=== PATIENT | male | born 1970 | race Caucasian/White ===

== ENCOUNTER 2017-03-14 09:25 | Emergency (ER) | payer OTHER ==
[~2017-03-14] VITALS: Ht 167.6 cm; Wt 101.2 kg
[~2017-03-14 09:25] MED LIST: DOXY20PT PO; ESOM20CA31 PO; FLUO-201 PO; KET10 PO; LORA-1221 PO; METO25TA93 PO; PER PO
[2017-03-14] MEDS ORDERED: SERT-184 PO (09:34)
[2017-03-14] MEDS ORDERED: CLON0.5T66 PO (09:34)
[2017-03-14] MEDS ORDERED: PANT40TA65 PO (09:34)
--- NOTE | 2017-03-14 09:42 | ER Report ---
History and Physical Time Seen By MD: 09:41 Hx. of Stated Complaint: BENT OVER TUESDAY AND FELT "POP" IN LOWER BACK. CONTINUES TO HAVE LOW BACK PAIN THAT RADIATES TO LEFT LEG AND HAS TINGLING. HPI/ROS CHIEF COMPLAINT: back pain HISTORY OF PRESENT ILLNESS: This is a 46 year old male. He was bending over on Tuesday. He went to get up and felt a "pop" in his lower back. Pain since then. Worsens with movement. The 1st 24 hours he could not get up and crawled around. When he tried to get up today, legs very weak and shaky and would give way, feels like they will not function at times. He has normal urination, but had sudden onset of diarrhea loose stool with urgency after this happened. He has had history of low back pain and disc problems in the past. Has seen Dr. Villa and Dr. Reid at [facility] in the past. Has an appointment coming up with , but symptoms were severe enough that the recommendation was made to come into the ER. He has shooting pain in both legs, to the thigh in the right and to the foot in the left. No fevers. Allergies: Coded Allergies: Cephalexin Monohydrate (Verified Allergy, Unknown, 03/14/17) Home Meds Active Scripts Methylprednisolone (METHYLPREDNISOLONE) 4 Mg Tab.ds.pk, 4 MG PO DIRECTED, #1 PACK 0 Refills Prov:SAM BROWN MD 03/14/17 Hydrocodone Bit/Acetaminophen (HYDROCODON-ACETAMINOPHEN 5-325) 1 Each Tablet, 1 EACH PO Q4H Y for PAIN, #12 TAB 0 Refills Prov:SAM BROWN MD 03/14/17 Cyclobenzaprine Hcl (CYCLOBENZAPRINE HCL) 10 Mg Tablet, 10 MG PO Q8H Y for MUSCLE SPASMS, #20 TAB 0 Refills Prov:SAM BROWN MD 03/14/17 Reported Medications Pantoprazole Sodium (PANTOPRAZOLE SODIUM) 40 Mg Tablet., 40 MG PO QDAY, TAB.SR 03/14/17 Clonazepam (KLONOPIN) 0.5 Mg Tablet, 0.5 MG PO TID, #10 TAB 03/14/17 Sertraline Hcl (SERTRALINE HCL) 50 Mg Tablet, 1 TAB PO QDAY, TAB 1/29/18 Discontinued Reported Medications Doxycycline Hyclate (DOXYCYCLINE HYCLATE) 20 Mg Tablet, PO QID 01/25/16 Esomeprazole Magnesium (NEXIUM) 20 Mg Capsule.dr, 1 CAP PO QDAY, CAP 01/25/16 Fluoxetine Hcl (PROZAC) 10 Mg Capsule, 30 MG PO QDAY, CAPSULE 01/25/16 Lorazepam (Ativan) 1 Mg Tablet, 1 MG PO TID Y for ANXIETY, #30 06/05/11 Reviewed Nurses Notes: Yes Hx Smoking: No Hx Substance Use Disorder: No Hx Alcohol Use: No Constitutional Vital Sign - Last 24 Hours 03/14/17 03/14/17 03/14/17 03/14/17 09:30 09:31 10:00 10:30 Pulse ??? 67 70 B/P (MAP) 135/79 (97) 127/81 (96) 108/53 (71) Pulse Ox 92 92 03/14/17 03/14/17 03/14/17 11:00 12:00 12:51 Pulse 77 71 70 B/P (MAP) 106/90 (95) 111/72 (85) 112/75 (87) Pulse Ox 92 91 O2 Delivery Room Air Physical Exam General Appearance: The patient is alert, has no immediate need for airway protection and no current signs of toxicity Respiratory: Breathing easily. Cardiac: regular rate and rhythm. Normal pulses in feet, normal cap refill. Gastrointestinal: Abdomen is soft and non tender. Musculoskeletal: Pain with palpation of lumbar spine and throughout the paraspinous area. Pain bilateral sciatic area. No pain on coccyx or sacrum. Neuro: Normal sensation bilaterally. Has normal strength which appears equal. Skin: No rashes or lesions. DIFFERENTIAL DIAGNOSIS: After history and physical exam differential diagnosis was considered for low back injury and pain, with some questionable bowel changes and question of weakness in the extremities. Medical Decision Making EKG/Imaging Imaging Exam type: LUMBAR SPINE 2 OR 3 VIEW History: low back injury/pain, weakness in legs Comparison: MR the lumbar spine December 21, 2006. Findings: There are five nonrib-bearing lumbar-type vertebral bodies present. Anterior osteophytes project from the endplates from T11 to S1. There is mild disc space narrowing at L4-5. There is mild to moderate disc space narrowing L5-S1. There is a 6 mm retrolisthesis of L5 with respect to S1. No acute appearing fractures are identified IMPRESSION: 1. There is a 6 mm retrolisthesis of L5 with respect S1 and mild to moderate disc space narrowing L5-S1 not appreciated on the prior MR Mild disc space narrowing also noted at L4-5 and anterior osteophytes throughout the visualized thoracal lumbar spine. If patient's symptoms persist MR recommended Report Dictated By: Ambar Nelson MD at 03/14/2017 10:48 AM EXAMINATION: L SPINE W/O CONTRAST INDICATION: Back pain radiating into legs COMPARISON: December 21, 2006 TECHNIQUE: Multiplane MR imaging was performed through the lumbar spine without contrast. FINDINGS: Vertebral bodies: Normal Conus position/signal: Normal Marrow signal: Minimal degenerative edema surrounds the L1-2 and L5-S1 disc spaces. Extraspinal structures including psoas muscles/paraspinal soft tissues: Normal L1-2: Normal L2-3: Normal. L3-4: Slight unchanged retrolisthesis of L3 on L4, minimal new left foraminal narrowing, otherwise normal. L4-5: Posterior disc protrusion eccentric to the left has increased in size and measures 5 mm AP dimension. This results in mild new left lateral recess narrowing. Mild unchanged right foraminal narrowing. Mild to moderate unchanged left foraminal narrowing. L5-S1: Posterior disc annular fissure and small posterior disc protrusion as before. Tiny new synovial cyst posterior to the right facet joint. No canal narrowing. Mild unchanged left foraminal narrowing, moderate new right foraminal narrowing. IMPRESSION: 1. 5 mm posterior L4-5 disc protrusion eccentric to the left results in mild new left lateral recess narrowing. 2. Unchanged left greater than right L4-5 foraminal narrowing, see comments above. 3. Moderate new right L5-S1 foraminal narrowing. 4. See additional level by level comments above. Report Dictated By: Jason Solorzano MD at 03/14/2017 11:54 AM ED Course/Re-evaluation ED Course Patient with mild improvement with Lortab, Flexeril and Ibuprofen. x-rays done followed by MRI lumbar spine. Changes as noted above. Patient was started on a Medrol dosepack and given prescriptions for Lortab and for Flexeril. He will follow-up with at [facility] as planned. Decision to Disposition Date: Mar 14, 2017 Decision to Disposition Time: 12:45 Depart Departure Latest Vital Signs Vital Signs Date Time Temp Pulse Resp B/P (MAP) Pulse Ox O2 Delivery O2 Flow Rate FiO2 03/14/17 12:51 70 112/75 (87) 91 Room Air Impression: Primary Impression: Lumbar radiculopathy, acute Condition: Improved Disposition: HOME OR SELF-CARE Referrals: DORETHA DUONG MD (PCP) New Scripts Methylprednisolone (METHYLPREDNISOLONE) 4 Mg Tab.ds.pk 4 MG PO DIRECTED, #1 PACK 0 Refills Prov: SAM BROWN MD 03/14/17 Hydrocodone Bit/Acetaminophen (HYDROCODON-ACETAMINOPHEN 5-325) 1 Each Tablet 1 EACH PO Q4H Y for PAIN, #12 TAB 0 Refills Prov: SAM BROWN MD 03/14/17 Cyclobenzaprine Hcl (CYCLOBENZAPRINE HCL) 10 Mg Tablet 10 MG PO Q8H Y for MUSCLE SPASMS, #20 TAB 0 Refills Prov: SAM BROWN MD 03/14/17 Patient Instructions: Lumbar Radiculopathy (ED) Additional Instructions: Start the steroid Prednisolone, which comes in a six day pack (Medrol dosepack). Take Lortab 5/325, one every 4 hours as needed for pain. Take Flexeril 10mg, one every 8 hours as needed for muscle spasm. Follow-up with a back specialist for further evaluation. Return for loss of control of bowel or bladder function, or sudden loss of function/weakness of extremities. SAM BROWN MD Mar 14, 2017 09:42
[2017-03-14] MEDS ORDERED: IBUPROFEN 800 MG TAB PO ONE (09:55)
[2017-03-14] MEDS ORDERED: APAP/HYDROCODONE 325/5 TAB PO ONE (09:55)
[2017-03-14] MEDS ORDERED: CYCLOBENZAPRINE HCL 10 MG TAB PO ONE (09:55)
[2017-03-14] MEDS ORDERED: LORazepam 0.5 MG TAB PO ONE (10:30)
--- NOTE | 2017-03-14 10:58 | RADIOLOGY IMAGING REPORT ---
FACILITY: [facility] [place] PATIENT NAME: Rk Peck : 1970 MR: [id number] V: [id number] EXAM DATE: [id number] ORDERING PHYSICIAN: SAM BROWN TECHNOLOGIST: Location: [facility] Patient: Rk Peck : 1970 Visit/Account:[id number] Date of Sevice: 03/14/2017 Exam type: LUMBAR SPINE 2 OR 3 VIEW History: low back injury/pain, weakness in legs Comparison: MR the lumbar spine December 21, 2006. Findings: There are five nonrib-bearing lumbar-type vertebral bodies present. Anterior osteophytes project fro m the endplates from T11 to S1. There is mild disc space narrowing at L4-5. There is mild to modera te disc space narrowing L5-S1. There is a 6 mm retrolisthesis of L5 with respect to S1. No acute ap pearing fractures are identified IMPRESSION: 1. There is a 6 mm retrolisthesis of L5 with respect S1 and mild to moderate disc space narrowing L5 -S1 not appreciated on the prior MR Mild disc space narrowing also noted at L4-5 and anterior osteophytes throughout the visualized thora myles lumbar spine. If patient's symptoms persist MR recommended Report Dictated By: Ambar Nelson MD at 03/14/2017 10:48 AM Report E-Signed By: Ambar Nelson MD at 03/14/2017 10:52 AM WSN:[email or web address]
--- NOTE | 2017-03-14 12:07 | RADIOLOGY IMAGING REPORT ---
FACILITY: [facility] [place] PATIENT NAME: Rk Peck : 1970 MR: [id number] V: [id number] EXAM DATE: [id number] ORDERING PHYSICIAN: SAM BROWN TECHNOLOGIST: Location: [facility] [place] Patient: Rk Peck : 1970 Visit/Account:[id number] Date of Sevice: 03/14/2017 EXAMINATION: L SPINE W/O CONTRAST INDICATION: Back pain radiating into legs COMPARISON: December 21, 2006 TECHNIQUE: Multiplane MR imaging was performed through the lumbar spine without contrast. FINDINGS: Vertebral bodies: Normal Conus position/signal: Normal Marrow signal: Minimal degenerative edema surrounds the L1-2 and L5-S1 disc spaces. Extraspinal struc tures including psoas muscles/paraspinal soft tissues: Normal L1-2: Normal L2-3: Normal. L3-4: Slight unchanged retrolisthesis of L3 on L4, minimal new left foraminal narrowing, otherwise no rmal. L4-5: Posterior disc protrusion eccentric to the left has increased in size and measures 5 mm AP dime nsion. This results in mild new left lateral recess narrowing. Mild unchanged right foraminal narrowing. Mild to moderate unchanged left foraminal narrowing. L5-S1: Posterior disc annular fissure and small posterior disc protrusion as before. Tiny new synovia l cyst posterior to the right facet joint. No canal narrowing. Mild unchanged left foraminal narrowin g, moderate new right foraminal narrowing. IMPRESSION: 1. 5 mm posterior L4-5 disc protrusion eccentric to the left results in mild new left lateral recess narrowing. 2. Unchanged left greater than right L4-5 foraminal narrowing, see comments above. 3. Moderate new right L5-S1 foraminal narrowing. 4. See additional level by level comments above. Report Dictated By: Jason Solorzano MD at 03/14/2017 11:54 AM Report E-Signed By: Jason Solorzano MD at 03/14/2017 12:03 PM WSN:[email or web address]
[2017-03-14] MEDS ORDERED: CYCL10TA29 PO (12:47)
[2017-03-14] MEDS ORDERED: LOR5/325 PO (12:47)
[2017-03-14] MEDS ORDERED: METH4TAB66 PO (12:47)
[2017-03-14 12:51] VITALS: BP 112/75
== END 2017-03-14 12:53 | disposition home or self-care (01) ==
LOC: ER 09:25
DX: M54.16 Radiculopathy, lumbar region (principal)
CPT/HCPCS: 72100; 72148; 99283